=== PATIENT | male | born 1945 | race Caucasian/White ===

== ENCOUNTER 2016-12-02 11:07 | Day surgery (SDC) | payer OTHER ==
[~2016-12-02] VITALS: Ht 175.3 cm; Wt 62.6 kg
[~2016-12-02 11:07] MED LIST: ADVAIR 250/501 DISK IH; ASPIRIN81 M2 PO; Ecotrin PO; FLOMAX0.4 MG PO; HYDROCODON-ACE1 EAC7 PO; MOBIC7.5 MG PO; MULTI VITAMIN1 EACH PO; OMEPRAZOLE40 M1 PO; PLAVIX75 MG PO; Protonix PO; Proventil,Ventolin H IH; SINGULAIR10 MG PO; SPIRIVA1 INHALATI IH; Singulair PO; TOPROL XL100 MG PO; VENTOLIN HFA18 GM IH; VITAMIN D2000 UNIT PO; ZOCOR40 MG PO; Zocor PO
[2016-12-02 11:42] VITALS: BP 136/81
[2016-12-02 15:05] VITALS: BP 140/72
[2016-12-02 15:56] VITALS: BP 137/63
== END 2016-12-02 16:00 | disposition home or self-care (01) ==
LOC: SDC 11:07
DX: H43.822 Vitreomacular adhesion, left eye (principal); H35.342 Macular cyst, hole, or pseudohole, left eye; H43.312 Vitreous membranes and strands, left eye; I10 Essential (primary) hypertension; J44.9 Chronic obstructive pulmonary disease, unspecified; E78.00 Pure hypercholesterolemia, unspecified; K21.9 Gastro-esophageal reflux disease without esophagitis; Z79.82 Long term (current) use of aspirin; I25.10 Atherosclerotic heart disease of native coronary artery without angina pectoris; Z95.5 Presence of coronary angioplasty implant and graft; Z87.891 Personal history of nicotine dependence
CPT/HCPCS: J0690; J1885; J3010; J3300